=== PATIENT | female | born 1940 | race Caucasian/White ===

== ENCOUNTER 2023-03-07 03:07 | Emergency (ER) | payer MEDICARE, OTHER ==
[~2023-03-07] VITALS: Ht 170.2 cm; Wt 68.0 kg
[~2023-03-07 03:07] MED LIST: ASPI81CH PO; Calcium Carbon500 MG; DONEPEZIL HCL10 M1 PO; HYDHCL25 PO; MELA3 PO; MEMANTINE HCL511 PO; OXAYDO5 M1 PO; Ventolin/Prove6.7 GM INH
[2023-03-07 03:10] VITALS: BP 137/85
== END 2023-03-07 04:46 | disposition left against medical advice (07) ==
LOC: ER 03:07
DX: R06.02 Shortness of breath (principal); Z88.0 Allergy status to penicillin; Z79.899 Other long term (current) drug therapy
CPT/HCPCS: 99285-25

== ENCOUNTER 2023-07-23 01:53 | Inpatient (IN) | payer MEDICARE, OTHER ==
[~2023-07-23] VITALS: Ht 175.3 cm; Wt 63.5 kg
[2023-07-23 02:45] LABS: BASOPHILS ABSOLUTE AUTO 0.04 K/mm3 (0.00-0.23); BASOPHILS PERCENT AUTO 0 % (0-2); EOSINOPHILS ABSOLUTE AUTO 0.05 K/mm3 (0.00-0.68); EOSINOPHILS PERCENT AUTO 0 % (0-6); Hematocrit 38.1 % (33.0-51.0); Hemoglobin 12.6 g/dL (11.5-16.0); IMMATURE GRAN ABSOLUTE AUTO 0.11 K/mm3 (0.00-0.10); IMMATURE GRAN PERCENT AUTO 1 % (0-1); LYMPHOCYTES ABSOLUTE AUTO 1.76 K/mm3 (0.84-5.20); LYMPHOCYTES PERCENT AUTO 13 % (21-46); MONOCYTES ABSOLUTE AUTO 0.57 K/mm3 (0.16-1.47); MONOCYTES PERCENT AUTO 4 % (4-13); Mean Corpuscular HGB 31.4 pg (26.0-34.0); Mean Corpuscular HGB Conc 33.1 g/dL (31.5-36.5); Mean Corpuscular Volume 95 fL (80-100); Mean Platelet Volume 11.4 fL (9.1-12.4); NEUTROPHILS PERCENT AUTO 81 % (41-73); Platelet Count 209 K/mm3 (150-400); Red Blood Cell Count 4.01 M/mm3 (3.80-5.20); White Blood Cell Count 13.13 K/mm3 (4.00-11.30)
[2023-07-23] MEDS ORDERED: FentaNYL Citrate 50 MCG/ML 2 ML Injection IV PRN ×2 (03:00→03:10)
[2023-07-23 03:05] LABS: Albumin, Blood 3.5 g/dL (3.4-5.0); Bilirubin, Total 0.4 mg/dL (0.1-1.0); Bun/Creatinine Ratio 16.9 (12.0-20.0); Calcium, Blood 8.5 mg/dL (8.5-10.1); Creatinine, Blood 0.59 mg/dL (0.40-1.00); Globulin, Blood 3.4 g/dL (2.2-4.0); Potassium, Blood 3.2 mmol/L (3.5-5.5); Total Protein, Blood 6.9 g/dL (6.4-8.2)
[2023-07-23] MEDS ORDERED: Ondansetron HCl 2 MG / ML 2ML Vial IV PRN (03:15)
[2023-07-23] MEDS ORDERED: NS 1,000 ML IV ONE ×2 (03:15→03:45)
[2023-07-23] MEDS ORDERED: Potassium Chloride 40 MEQ in NS 250 ML IV ONE (03:45)
[2023-07-23] MEDS ORDERED: Ketorolac Tromethamine 30mg Vial IV ONE (04:00)
[2023-07-23 04:04] LABS: BASOPHILS ABSOLUTE AUTO 0.03 K/mm3 (0.00-0.23); BASOPHILS PERCENT AUTO 0 % (0-2); EOSINOPHILS ABSOLUTE AUTO 0.01 K/mm3 (0.00-0.68); EOSINOPHILS PERCENT AUTO 0 % (0-6); Hematocrit 36.4 % (33.0-51.0); Hemoglobin 12.5 g/dL (11.5-16.0); IMMATURE GRAN PERCENT AUTO 1 % (0-1); LYMPHOCYTES ABSOLUTE AUTO 1.05 K/mm3 (0.84-5.20); LYMPHOCYTES PERCENT AUTO 7 % (21-46); MONOCYTES ABSOLUTE AUTO 0.72 K/mm3 (0.16-1.47); MONOCYTES PERCENT AUTO 4 % (4-13); Mean Corpuscular HGB 32.3 pg (26.0-34.0); Mean Corpuscular HGB Conc 34.3 g/dL (31.5-36.5); Mean Corpuscular Volume 94 fL (80-100); Mean Platelet Volume 11.3 fL (9.1-12.4); NEUTROPHILS ABSOLUTE AUTO 14.32 K/mm3 (1.96-9.15); NEUTROPHILS PERCENT AUTO 88 % (41-73); Platelet Count 207 K/mm3 (150-400); RDW Standard Deviation 41.9 fL (35.1-46.3); Red Blood Cell Count 3.87 M/mm3 (3.80-5.20); White Blood Cell Count 16.23 K/mm3 (4.00-11.30)
[2023-07-23] MEDS ORDERED: ELIQUIS2.5 M1 PO (04:07)
[2023-07-23 04:20] LABS: International Normalized Ratio 1.02; Prothrombin Time Results 10.9 Sec (9.7-11.5)
[2023-07-23 04:37] LABS: Albumin, Blood 3.4 g/dL (3.4-5.0); Bilirubin, Total 0.5 mg/dL (0.1-1.0); Bun/Creatinine Ratio 19.7 (12.0-20.0); Calcium, Blood 8.5 mg/dL (8.5-10.1); Creatinine, Blood 0.51 mg/dL (0.40-1.00); Globulin, Blood 3.5 g/dL (2.2-4.0); Potassium, Blood 3.2 mmol/L (3.5-5.5); Total Protein, Blood 6.9 g/dL (6.4-8.2)
[2023-07-23 04:59] VITALS: BP 118/54
--- NOTE | 2023-07-23 05:21 | NUR ---
ADMIT NOTE ER HANDOFF RECEIVED FROM ASHLYN. PT ARRIVED TO FLOOR VIA GURNEY. IV FLUID AND K+ INFUSING CONCURRENTLY. PERSONAL POSSESSIONS WITH PT. PT SPOUSE AT BEDSIDE. BED ALARM IN PLACE. CALL BUTTON WITHIN REACH. ORIENTED TO UNIT. PATIENT HAS SEVERE DEMENTIA. SHE IS CALM AND COOPERATIVE WITH CARE. PUREWICK IN PLACE. PT IS NPO.
[2023-07-23 07:17] VITALS: BP 117/51
--- NOTE | 2023-07-23 07:53 | NUR ---
CALL TO [facility] AFTER-HOURS AND SPOKE WITH LESLEY TO INFORM OF CONSULT.
[2023-07-23] MEDS ORDERED: Memantine HCL 5 MG Tab PO SCH (09:00)
[2023-07-23] MEDS ORDERED: Donepezil HCl 5 MG Tab PO SCH (09:00)
--- NOTE | 2023-07-23 12:19 | NUR ---
ORTHO TO BEDSIDE. RECOMMEND SURGERY TOMORROW. OK FOR FOOD TODAY; NPO AFTER MIDNIGHT. FAMILY UPDATED UPON RETURN.
[2023-07-23 14:58] VITALS: BP 130/62
[2023-07-23] MEDS ORDERED: CeFAZolin Sodium 2,000 MG in NS 100 ML IV SCH (18:15)
[2023-07-23] MEDS ORDERED: Tranexamic Acid 100 ML IV PRN (18:20)
[2023-07-23] MEDS ORDERED: Tranexamic Acid 100 ML IV SCH (18:20)
--- NOTE | 2023-07-23 19:33 | NUR ---
DAY SHIFT SUMMARY: A&OX2-3 SELF, FAMILY AND PLACE. STATES SHE WANTS TO GO HOME. CONTINUES TO TRY TO REPOSITION DUE TO PAIN AND DOES NOT REMEMBER SHE HAS A BROKEN HIP. MEDICATED x2 PRN FENTANYL. ABLE TO EAT TODAY AND WILL BE NPO AFTER MIDNIGHT IN ANTICIPATION OF LEFT HEMIARTHROPLASTY TOMORROW. , MAGUI, AT BEDSIDE ALL DAY. TWO DAUGTHERS, MICHAEL AND YINKA AT BEDSIDE MUCH OF DAY. REQUIRES VERBAL CUES TO INITIATE EAT AND DRINK, BUT INDEPENDENT ONCE STARTED. VERY AGREEABLE AND DOES NOT FOLLOW DIRECTION VERY WELL. C/O PAIN LEFT HIP. PUREWICK IN PLACE. NO BM TODAY. REPORT TO ONCOMING RN.
[2023-07-23 20:02] VITALS: BP 131/53
[2023-07-24] VITALS (18 sets, daily range): BP systolic 113–146; BP diastolic 53–76
[2023-07-24 05:42] LABS: BASOPHILS ABSOLUTE AUTO 0.01 K/mm3 (0.00-0.23); BASOPHILS PERCENT AUTO 0 % (0-2); EOSINOPHILS ABSOLUTE AUTO 0.02 K/mm3 (0.00-0.68); EOSINOPHILS PERCENT AUTO 0 % (0-6); Hematocrit 36.9 % (33.0-51.0); Hemoglobin 12.1 g/dL (11.5-16.0); IMMATURE GRAN ABSOLUTE AUTO 0.02 K/mm3 (0.00-0.10); IMMATURE GRAN PERCENT AUTO 0 % (0-1); LYMPHOCYTES ABSOLUTE AUTO 1.21 K/mm3 (0.84-5.20); LYMPHOCYTES PERCENT AUTO 16 % (21-46); MONOCYTES ABSOLUTE AUTO 0.73 K/mm3 (0.16-1.47); MONOCYTES PERCENT AUTO 10 % (4-13); Mean Corpuscular HGB 31.5 pg (26.0-34.0); Mean Corpuscular HGB Conc 32.8 g/dL (31.5-36.5); Mean Corpuscular Volume 96 fL (80-100); Mean Platelet Volume 11.6 fL (9.1-12.4); NEUTROPHILS ABSOLUTE AUTO 5.73 K/mm3 (1.96-9.15); NEUTROPHILS PERCENT AUTO 74 % (41-73); Platelet Count 154 K/mm3 (150-400); RDW Coefficient Variation 12.6 % (11.7-14.2); RDW Standard Deviation 43.6 fL (35.1-46.3); Red Blood Cell Count 3.84 M/mm3 (3.80-5.20); White Blood Cell Count 7.72 K/mm3 (4.00-11.30)
[2023-07-24 05:58] LABS: Magnesium, Blood 2.1 mg/dL (1.6-2.4)
[2023-07-24 05:59] LABS: Albumin, Blood 3.1 g/dL (3.4-5.0); Anion Gap 8 mmol/L (3-11); Blood Urea Nitrogen 8 mg/dL (8-24); Bun/Creatinine Ratio 12.7 (12.0-20.0); CO2, Blood 25 mmol/L (21-32); Calcium, Blood 8.6 mg/dL (8.5-10.1); Chloride, Blood 111 mmol/L (98-108); Creatinine, Blood 0.63 mg/dL (0.40-1.00); Glomerular Filtration Rate 89 (60-); Glucose, Blood 112 mg/dL (70-99); Phosphorus, Blood 2.6 mg/dL (2.5-4.9); Potassium, Blood 3.6 mmol/L (3.5-5.5); Sodium, Blood 140 mmol/L (136-145)
--- NOTE | 2023-07-24 06:06 | NUR ---
SUMMARY: PT A/OX2-3 AND IS FORGETFUL AT TIMES BUT SUPPORTIVE IS AT BEDSIDE HELPING TO ALERT STAFF OF ASSIST REQ'D AND CARE NEEDS. SHE'S BEEN NPO [place] FOR L.HEMIARTHROPLASTY PLANNED TODAY. PUREWIC REMAINS IN PLACE D/T INCONTINENCE AND LIMITED MOBILITY R/T L.HIP FX. PT WAS MEDICATED W/FENTANYL 5O MCG IV X2 FOR TOLERABLE RELIEF OF ASSOCIATED PAIN AND SHE'S BEEN GRADUALLY REPOSITIONED FOR SBD PREVENTION AND COMFORT, PILLOWS PLACED FOR SUPPORT. NO ACUTE CHANGES, VSS/AFEBRILE. WCTM AND REPORT TO DAY RN.
--- NOTE | 2023-07-24 14:29 | NUR ---
NOTE: PATIENT LEFT THE ROOM AT THIS TIME TO DAY SURGERY.
[2023-07-24] MEDS ORDERED: Lactated Ringer's 1,000 ML IV ONE (14:50)
--- NOTE | 2023-07-24 14:53 | NUR ---
SHIFT/TRANSFERRED SUMMARY: PATIENT A/O TO SELF, PLACED AND PERSON, ABLE TO FOLLOW SIMPLE COMMAND. PATIENT REPORTS PAIN TO L HIP, MEDICATED c PRN IV PAIN MEDS c GOOD EFFECT. PATIENT HAS BEEN NPO [place] FOR POSSIBLE SX TODAY. PUREWICK SYSTEM IN PLACED FOR INCON VOID, Q2 TURN. PATIENT FAMILY AT BEDSIDE T/O THE DAY. PATIENT LEFT THE ROOM AT 1429 TO DAY SURGERY. ALL PATIENT PERSONNAL BELONGINGS WERE SENT c THE PATIENT DAUGHTER. PATIENT WILL BE TRANSFERRED TO SURGICAL UNIT RM 214 AFTER SURGERY. TELEPHONE REPORT GIVEN TO KIMBER LUNA REGARDING PATIENT CONDITION.
[2023-07-24] MEDS ORDERED: Lactated Ringer's 1,000 ML IV SCH (14:55)
[2023-07-24] MEDS ORDERED: Etomidate 2MG / ML 10ML Vial ONE (15:15)
[2023-07-24] MEDS ORDERED: propofoL 0 ML IV ONE (15:16)
[2023-07-24] MEDS ORDERED: FentaNYL Citrate 50 MCG/ML 2 ML Injection ONE (15:25)
[2023-07-24] MEDS ORDERED: Dexamethasone Sod Phos 10 MG/ML 1ML VIAL ONE (16:21)
[2023-07-24] MEDS ORDERED: Ondansetron HCl 2 MG / ML 2ML Vial ONE (16:21)
[2023-07-24] MEDS ORDERED: SuccINYLCHOLINE Chloride 100 MG/5 ML 5MLSYR ONE (16:22)
[2023-07-24] MEDS ORDERED: Lidocaine HCl 2% 20 ML MDV ONE (16:22)
[2023-07-24] MEDS ORDERED: Bupivacaine 0.5% HCl 5 MG/ML 30MLVIAL ONE (16:36)
[2023-07-24] MEDS ORDERED: Phenylephrine HCl 100 MCG/ML-NS 10MLSYR (1MG/10ML) ONE (17:00)
--- NOTE | 2023-07-24 18:44 | NUR ---
PT ARRIVED TO THE ROOM FROM PACU AT 1830. PT ALERT AND INTERACTING WITH FAMILY AND STAFF. PT DENIES PAIN. FLUIDS OFFERED. CALL LIGHT WITHIN REACH.
--- NOTE | 2023-07-24 19:40 | NUR ---
SHIFT SUMMARY PT IS POD#0 FROM L NESHA HIP WITH DR. GARSIA. PT DENIES PAIN. PT ALERT AND ORIENTED X 2. FAMILY PRESENT FOR SUPPORT. BEDSIDE REPORT GIVEN TO BECCA QUIROGA.
[2023-07-24] MEDS ORDERED: OxyCODONE 5 mg/Acetamin 325 mg TABLET PO PRN (21:55)
[2023-07-24] MEDS ORDERED: Acetaminophen 500 MG Tab PO PRN (21:55)
[2023-07-24] MEDS ORDERED: NS 250 ML IV PRN (23:15)
[2023-07-24] MEDS ORDERED: CeFAZolin Sodium 2,000 MG in NS 100 ML IV SCH (23:30)
[2023-07-25 03:15] VITALS: BP 126/64
--- NOTE | 2023-07-25 04:17 | NUR ---
SHIFT SUMMARY POD 1 L NESHA HIP PT ABLE TO REST DURING THE NIGHT. PT HAS NOT C/O ANY PAIN DURING THE SHIFT. PT HAD A COUPLE MOMENTS OF CONFUSION, TAKING OFF AQUACEL DRESSING, PULLED OUT IV AND GOT OOB. DRESSING TO L HIP IS C/D/I. PT HAS PUREWICK IN PLACE, DRAINING YELLOW URINE. VSS. NO OTHER CONCERNS AT THIS TIME, CALL LIGHT WITHIN REACH
[2023-07-25 06:28] LABS: BASOPHILS ABSOLUTE AUTO 0.02 K/mm3 (0.00-0.23); BASOPHILS PERCENT AUTO 0 % (0-2); EOSINOPHILS PERCENT AUTO 0 % (0-6); Hematocrit 35.6 % (33.0-51.0); Hemoglobin 11.6 g/dL (11.5-16.0); IMMATURE GRAN ABSOLUTE AUTO 0.05 K/mm3 (0.00-0.10); IMMATURE GRAN PERCENT AUTO 0 % (0-1); LYMPHOCYTES ABSOLUTE AUTO 0.89 K/mm3 (0.84-5.20); LYMPHOCYTES PERCENT AUTO 8 % (21-46); MONOCYTES PERCENT AUTO 8 % (4-13); Mean Corpuscular HGB 31.1 pg (26.0-34.0); Mean Corpuscular HGB Conc 32.6 g/dL (31.5-36.5); Mean Corpuscular Volume 95 fL (80-100); Mean Platelet Volume 12.2 fL (9.1-12.4); NEUTROPHILS ABSOLUTE AUTO 9.78 K/mm3 (1.96-9.15); NEUTROPHILS PERCENT AUTO 84 % (41-73); Platelet Count 193 K/mm3 (150-400); RDW Standard Deviation 42.3 fL (35.1-46.3); Red Blood Cell Count 3.73 M/mm3 (3.80-5.20); White Blood Cell Count 11.64 K/mm3 (4.00-11.30)
[2023-07-25 07:15] VITALS: BP 126/64
--- NOTE | 2023-07-25 11:24 | NUR ---
Pt. is sitting up in a recliner when she welcomes my visit. Pt. is pleasant. Facilitated a life review and listened with interest, empahy and a calming presence. Pt. displayed evidence of awareness and engagement for morst of the visit. Prayed with Pt. Pt. verbalized gratitude for the spiritual care visit.
[2023-07-25 15:53] VITALS: BP 115/46
--- NOTE | 2023-07-25 17:23 | NUR ---
SHIFT SUMMARY POD 1 L NESHA HIP. NO ACUTE CHANGES THIS SHIFT. VSS. A&0 x1-2. TOLERATING ORALS, NEEDS TO BE SAT UPRIGHT. VOIDING, INCONTINENT, ATTENDS IN PLACE c PUREWICK. PT WEAK WHEN AMBULATING. USES FWW c GB & 1 PERSON ASSIST. PT OVERESTIMATES ABILITIES, BED ALARM IN USE. ANTICIPATED D/C TO SNF. PT REPORTS PAIN TOLERABLE, MEDICATED PER EMAR. CALL LIGHT IN REACH, BED IN LOWEST POSITION, WILL REPORT TO NOC RN.
[2023-07-25 20:08] VITALS: BP 119/55
[2023-07-26 05:03] VITALS: BP 122/66
--- NOTE | 2023-07-26 05:05 | NUR ---
SHIFT SUMMARY POD2 L NESHA HIP, STEPHEN REMAINS C/D/I. VSS. PT SLEPT IN THE RECLINER T/O THE NIGHT, SHE REPORTS IT IS MORE COMFORTABLE THAN THE BED. PT SLEPT WELL T/O THE NIGHT WITH HER NEXT TO HER. DID NOT ATTEMPT TO GET UP OR PULL AT ANY LINES/DRESSINGS. OT WAS PLEASENT AND COOPERATIVE T/O THE NIGHT. DID NOT REQUIRE ANY PAIN MEDICATION. TOLLERATED PO INTAKE W/O N/V. NOTED LOW PO INTAKE, PT REQUIRING DIRECTION TO DRINK ANYTHING. OVERALL NO ACUTE EVENTS NOTED. AWAITING SNF
[2023-07-26 06:09] LABS: BASOPHILS ABSOLUTE AUTO 0.02 K/mm3 (0.00-0.23); BASOPHILS PERCENT AUTO 0 % (0-2); EOSINOPHILS ABSOLUTE AUTO 0.01 K/mm3 (0.00-0.68); EOSINOPHILS PERCENT AUTO 0 % (0-6); Hematocrit 33.8 % (33.0-51.0); Hemoglobin 11.1 g/dL (11.5-16.0); IMMATURE GRAN ABSOLUTE AUTO 0.04 K/mm3 (0.00-0.10); IMMATURE GRAN PERCENT AUTO 0 % (0-1); LYMPHOCYTES ABSOLUTE AUTO 1.58 K/mm3 (0.84-5.20); LYMPHOCYTES PERCENT AUTO 16 % (21-46); MONOCYTES ABSOLUTE AUTO 0.87 K/mm3 (0.16-1.47); MONOCYTES PERCENT AUTO 9 % (4-13); Mean Corpuscular HGB 31.1 pg (26.0-34.0); Mean Corpuscular HGB Conc 32.8 g/dL (31.5-36.5); Mean Corpuscular Volume 95 fL (80-100); NEUTROPHILS ABSOLUTE AUTO 7.26 K/mm3 (1.96-9.15); NEUTROPHILS PERCENT AUTO 74 % (41-73); Platelet Count 179 K/mm3 (150-400); RDW Standard Deviation 41.8 fL (35.1-46.3); Red Blood Cell Count 3.57 M/mm3 (3.80-5.20); White Blood Cell Count 9.78 K/mm3 (4.00-11.30)
[2023-07-26 07:17] VITALS: BP 115/56
[2023-07-26 14:18] VITALS: BP 117/56
[2023-07-26 15:07] LABS: SARS-Cov-2 (COVID-19) PCR, MMC NEGATIVE (NEGATIVE)
--- NOTE | 2023-07-26 15:22 | NUR ---
DISCHARGE NOTE: PATIENT IS DIS[facility] TO [facility] TODAY. THIS NURSE JUST GAVE REPORT TO PRAVEENA QUIROGA AT [facility]. AFTER REPORT WAS GIVEN TO PRAVEENA QUIROGA THERE WERE NO FURTHER QUESTIONS AT THIS TIME. IV WAS TAKEN OUT AND WNL. PAIN IS MANAGED WITH PO TYLENOL. HER LEFT HIP HAS AN AQUACEL THAT IS C/D/I. SHE DENIES NUMBNESS OR TINGLING IN ALL EXTREMITIES AND CAN MOVE ALL FINGERS AND TOES WHEN ASKED. SHE IS TOLERATING PO INTAKE AND IS AT HER BASELINE INCONTINENCE. SHE HAS A NEW PAIR OF ATTENDS IN PLACE AT THIS TIME. PATIENT IS DRESSED AND HAS PERSONAL ITEMS IN THE ROOM GATHERED. PATIENTS DAUGHTERS HAVE BEEN NOTIFIED OF THE PATIENT DISCHARGING TO [facility] TODAY.
--- NOTE | 2023-07-26 15:27 | NUR ---
AWAITING FOR TRANSPORT TO ARRIVE.
--- NOTE | 2023-07-26 15:30 | NUR ---
TRANSPORT HAS ARRIVED TO TAKE THE PATIENT TO [facility]. SHE HAS ALL PERSONAL ITEMS IN THE ROOM GATHERED.
--- NOTE | 2023-07-29 11:20 | NUR ---
07/29/23 1120 Skyla Zapien VERIFICATIONS: EDIT CHART.
== END 2023-07-26 15:48 | DRG 522 ==
LOC: ER 01:53 → MEDS 03:56 → SURS 03:56 → MEDS 04:38 → SURS 07-24 16:19
PROVIDERS: Emergency Medicine; Family Medicine; Orthopaedic Surgery Sports Medicine; ADMIT Internal Medicine
PROC: 0SRS039 Replacement of Left Hip Joint, Femoral Surface with Ceramic Synthetic Substitute, Cemented, Open Approach (ICD-10-PCS; principal; 2023-07-24 12:30)
DX: S72.032A Displaced midcervical fracture of left femur, initial encounter for closed fracture (principal); D72.829 Elevated white blood cell count, unspecified; W18.39XA Other fall on same level, initial encounter; I48.91 Unspecified atrial fibrillation; F03.90 Unspecified dementia, unspecified severity, without behavioral disturbance, psychotic disturbance, mood disturbance, and anxiety; Z66 Do not resuscitate; Z88.0 Allergy status to penicillin; Z79.01 Long term (current) use of anticoagulants
CPT/HCPCS: 36415; 73502; 80053; 80069; 83735; 83880; 85025; 85610; 93005; 93010; 97110; 97116; 97162; 97530; 99285-25; A9270; C1713; C1776; J0330; J0690; J1100; J1885; J2371; J2405; J2704; J3010; J3480; J7030; J7050; J7120; U0002

== ENCOUNTER → 2023-09-26 | Outpatient (CLI) | payer MEDICARE, OTHER ==
[~2023-09-26] MED LIST changes: +ELIQUIS2.5 M1 PO
[2023-09-26 13:19] LABS: Hematocrit 39.9 % (33.0-51.0); Hemoglobin 12.5 g/dL (11.5-16.0); Mean Corpuscular HGB 30.3 pg (26.0-34.0); Mean Corpuscular HGB Conc 31.3 g/dL (31.5-36.5); Mean Corpuscular Volume 97 fL (80-100); Mean Platelet Volume 11.5 fL (9.1-12.4); Platelet Count 245 K/mm3 (150-400); RDW Coefficient Variation 12.2 % (11.7-14.2); RDW Standard Deviation 43.9 fL (35.1-46.3); Red Blood Cell Count 4.13 M/mm3 (3.80-5.20)
[2023-09-26 14:08] LABS: Albumin, Blood 3.6 g/dL (3.4-5.0); Albumin/Globulin Ratio 0.9 (0.8-1.8); Bilirubin, Total 0.4 mg/dL (0.1-1.0); Bun/Creatinine Ratio 20.8 (12.0-20.0); Calcium, Blood 9.3 mg/dL (8.5-10.1); Creatinine, Blood 0.67 mg/dL (0.40-1.00); Globulin, Blood 3.8 g/dL (2.2-4.0); Potassium, Blood 3.8 mmol/L (3.5-5.5); Total Protein, Blood 7.4 g/dL (6.4-8.2)
== END | disposition home or self-care (01) ==
LOC: LAB SHORT 12:29 → LAB 12:29
PROVIDERS: Hospitalist; Internal Medicine
DX: S72.002A Fracture of unspecified part of neck of left femur, initial encounter for closed fracture (principal); I48.0 Paroxysmal atrial fibrillation; F03.92 Unspecified dementia, unspecified severity, with psychotic disturbance
CPT/HCPCS: 80053; 85027

== ENCOUNTER 2024-03-29 20:26 | Emergency (ER) | payer MEDICARE, OTHER ==
[~2024-03-29] VITALS: Ht 167.6 cm; Wt 59.0 kg
[2024-03-29] MEDS ORDERED: NS 1,000 ML IV SCH (20:55)
[2024-03-29 21:07] LABS: BASOPHILS ABSOLUTE AUTO 0.04 K/mm3 (0.00-0.23); BASOPHILS PERCENT AUTO 1 % (0-2); EOSINOPHILS ABSOLUTE AUTO 0.04 K/mm3 (0.00-0.68); EOSINOPHILS PERCENT AUTO 1 % (0-6); Hemoglobin 11.5 g/dL (11.5-16.0); IMMATURE GRAN ABSOLUTE AUTO 0.02 K/mm3 (0.00-0.10); IMMATURE GRAN PERCENT AUTO 0 % (0-1); LYMPHOCYTES PERCENT AUTO 32 % (21-46); MONOCYTES ABSOLUTE AUTO 0.64 K/mm3 (0.16-1.47); MONOCYTES PERCENT AUTO 8 % (4-13); Mean Corpuscular HGB 31.1 pg (26.0-34.0); Mean Corpuscular HGB Conc 32.9 g/dL (31.5-36.5); Mean Corpuscular Volume 95 fL (80-100); Mean Platelet Volume 11.7 fL (9.1-12.4); NEUTROPHILS ABSOLUTE AUTO 4.54 K/mm3 (1.96-9.15); NEUTROPHILS PERCENT AUTO 58 % (41-73); Platelet Count 208 K/mm3 (150-400); RDW Coefficient Variation 12.8 % (11.7-14.2); RDW Standard Deviation 44.3 fL (35.1-46.3); White Blood Cell Count 7.78 K/mm3 (4.00-11.30)
[2024-03-29 21:29] LABS: Albumin, Blood 3.1 g/dL (3.4-5.0); Bilirubin, Total 0.1 mg/dL (0.1-1.0); Bun/Creatinine Ratio 34.2 (12.0-20.0); Creatinine, Blood 0.61 mg/dL (0.40-1.00); Globulin, Blood 3.2 g/dL (2.2-4.0); Potassium, Blood 3.9 mmol/L (3.5-5.5); Total Protein, Blood 6.3 g/dL (6.4-8.2)
[2024-03-29 21:55] LABS: Source, Urine Clean Catch
[2024-03-29 22:03] LABS: Bilirubin, Urine Neg (Neg); Blood, Urine Neg (Neg); Glucose Qualitative, Urine Neg (Neg); Ketones, Urine Neg (Neg); Leukocyte Esterase, Urine 2+ (Neg); Nitrite, Urine Neg (Neg); Protein, Urine Neg (Neg); Specific Gravity, Urine 1.025 (1.003-1.022); Urobilinogen, Urine NORM (Normal)
[2024-03-29 22:09] LABS: Color, Urine Yellow (P-Yellow)
[2024-03-29 22:13] LABS: Appearance, Urine Clear (Clear)
[2024-03-29 22:16] LABS: Bacteria Mod /hpf; Red Blood Cells, Urine Not Seen /hpf (0-2); Squamous Epithelial Cells Few /hpf (Few)
[2024-03-29] MEDS ORDERED: CefTRIAXone Sodium 1,000 MG in NS 100 ML IV ONE (22:30)
[2024-03-29] MEDS ORDERED: CEFD300 PO (22:58)
[2024-03-29 23:00] VITALS: BP 107/65
== END 2024-03-29 23:37 | disposition home or self-care (01) ==
LOC: ER 20:26
PROVIDERS: Student in an Organized Health Care Education/Training Program
DX: N39.0 Urinary tract infection, site not specified (principal); Z88.1 Allergy status to other antibiotic agents; Z79.01 Long term (current) use of anticoagulants; Z79.899 Other long term (current) drug therapy
CPT/HCPCS: 80053; 81001; 84484; 85025; 93005; 93010; 96374; 99285-25; J0696; J7030